=== PATIENT | male | born 1955 | race Caucasian/White ===

== ENCOUNTER 2018-11-01 11:46 | Day surgery (SDC) | payer MEDICARE ==
[2018-11-01] MEDS ORDERED: Sodium Chloride 0.9% 10 ML Syringe FLUSH PRN (12:45)
[2018-11-01] MEDS: Lactated Ringers 1,000 ML IV SCH (13:00)
[2018-11-01] MEDS ORDERED: Midazolam 1 MG/ML 2 ML SDV ONE (15:15)
[2018-11-01] MEDS ORDERED: Propofol 200 MG/20 ML SDV ONE ×2 (15:15→16:33)
--- NOTE | 2018-11-01 15:48 | PCM.PN ---
- General Info Date of Service: 11/01/18 - Review of Systems Systems Review Comment:: 62-year-old male referred for colonoscopy. He has a two-month history of unexplained diarrhea. His last colon exam was approximately 8 years ago. The patient is medically stable to proceed today. His recent history and physical is reviewed and no significant changes are noted. I discussed the proposed colonoscopy with the patient. He agrees to proceed accepting risks. - Patient Data Vitals - Most Recent: Last Vital Signs Temp 99.3 F 11/01/18 12:34 Pulse 85 11/01/18 12:34 Resp 16 11/01/18 12:34 BP 140/80 11/01/18 12:34 Pulse Ox 96 11/01/18 12:34 Weight - Most Recent: 102.058 kg Med Orders - Current: Current Medications Lactated Ringer's (Ringers, Lactated) 1,000 mls @ 50 mls/hr IV ASDIRECTED AIXA Sodium Chloride (Saline Flush) 10 ml FLUSH Q8HR PRN PRN Reason: keep vein open Discontinued Medications Midazolam HCl (Versed 1 Mg/Ml) Confirm Administered Dose 2 mg .ROUTE .STK-MED ONE Stop: 11/01/18 15:16 Propofol (Diprivan 20 Ml) Confirm Administered Dose 200 mg .ROUTE .STK-MED ONE Stop: 11/01/18 15:16 - Problem List Review Problem List Initiated/Reviewed/Updated: Yes - My Orders Last 24 Hours: My Active Orders 11/01/18 12:45 Patient to Empty Bladder [RC] ASDIRECTED Peripheral IV Care [RC] . DIRECTED Vital Signs [RC] PER UNIT ROUTINE Lactated Ringers [Ringers, Lactated] 1,000 ml IV ASDIRECTED Sodium Chloride 0.9% [Saline Flush] 10 ml FLUSH Q8HR PRN Peripheral IV Insertion Adult [OM.PC] Routine 11/01/18 14:00 Verify Patient Consent Obtain [RC] ASDIRECTED 11/01/18 Breakfast Nothing Per Oral Diet [DIET] - Assessment Assessment:: Unexplained diarrhea - Plan Plan:: Colonoscopy
[2018-11-01] MEDS ORDERED: Propofol 200 MG/20 ML SDV IV ONE (16:17)
[2018-11-01] MEDS ORDERED: Midazolam 1 MG/ML 2 ML SDV IV ONE (16:17)
--- NOTE | 2018-11-01 16:56 | PCM.OPNOTE ---
- General Post-Op/Procedure Note Date of Surgery/Procedure: 11/01/18 Operative Procedure(s): Colonoscopy with Biopsy Findings: Normal appearing colon and terminal ileum except for 1 small transverse colon polyp Pre Op Diagnosis: Diarrhea Post-Op Diagnosis: Transverse Colon Polyp Anesthesia Technique: [facility] [place] Primary Surgeon: Carl Escobar Pathology: Biopsies of Right and Left Colon Transverse Colon Polyp Output, Urine Amount: 0 EBL in mLs: 3 Complications: None Condition: Good
--- NOTE | 2018-11-01 18:32 | OR ---
DATE OF SURGERY: 11/01/2018 SURGEON: Carl Escobar MD PREOPERATIVE DIAGNOSIS: Unexplained diarrhea. POSTOPERATIVE DIAGNOSIS: Transverse colon polyp and otherwise normal colon. OPERATION PERFORMED: Colonoscopy with biopsy. INDICATIONS FOR SURGERY: This 62-year-old male has a 2-month history of diarrhea, which is unexplained. It has been several years since his last colonoscopy and he is referred for diagnostic exam. FINDINGS: No visible signs of inflammation are seen during the exam. The patient had one small polyp in the mid transverse colon, 3 to 4 mm in size. The remainder of the colon and terminal ileum appeared normal with no erythema or signs of inflammation. DESCRIPTION OF PROCEDURE: The patient was taken to the operating room. He was given intravenous sedation and with him in the left lateral decubitus position, digital rectal exam was performed, showing no rectal masses. The Olympus colonoscope was inserted into the rectum. Retroflexed examination of the rectal canal was performed. The scope was then carefully advanced under direct visualization through the entire length of the colon until the cecum was reached. Cecal acquisition is confirmed by noting the normal internal cecal anatomy including the appendiceal orifice and ileocecal valve. The light was also noted to transilluminate the abdominal wall in the right lower quadrant. The ileocecal valve was cannulated and the terminal ileum examined and appeared normal. The scope was withdrawn back into the cecum and then slowly withdrawn, examining sequentially the colonic segments. During withdrawal of the scope, random biopsies were taken of the right colon and left colon. During withdrawal of the scope, also a small polyp was noted in the transverse colon and this was removed with the cold biopsy forceps. After the examination had been completed and with no sign of any complication, the scope was removed and the patient was taken from the operating room in satisfactory condition. ESTIMATED BLOOD LOSS: 3 mL. COMPLICATIONS: None. PROGNOSIS: Good. /[id number]/MODL
== END 2018-11-01 18:20 | disposition home or self-care (01) ==
LOC: KA.SDS 11:46
PROVIDERS: ATTEND Surgery
DX: R19.7 Diarrhea, unspecified (principal); D12.3 Benign neoplasm of transverse colon; K63.5 Polyp of colon; E11.9 Type 2 diabetes mellitus without complications; I10 Essential (primary) hypertension; G89.29 Other chronic pain; E78.00 Pure hypercholesterolemia, unspecified; F32.9 Major depressive disorder, single episode, unspecified; Z79.84 Long term (current) use of oral hypoglycemic drugs; Z79.899 Other long term (current) drug therapy; Z88.5 Allergy status to narcotic agent
CPT/HCPCS: 00812; J2250; J2704; J7120